=== PATIENT | male | born 1990 | race Caucasian/White ===

== ENCOUNTER 2019-07-24 17:50 | Emergency (ER) | payer BC ==
[2019-07-24 18:02] VITALS: O2SAT 100
[2019-07-24] MEDS ORDERED: Kenalog-40 IM ONE (18:11)
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
[2019-07-24 18:51] VITALS: BP 128/81; PULSE 70
== END 2019-07-24 18:50 | disposition home or self-care (01) ==
LOC: ED 17:50
DX: L30.9 Dermatitis, unspecified (principal); T78.40XA Allergy, unspecified, initial encounter
CPT/HCPCS: 96372; 99283; J3301